=== PATIENT | male | born 1990 | race Caucasian/White ===

== ENCOUNTER 2023-01-13 12:59 | Emergency (ER) | payer OTHER ==
[~2023-01-13] VITALS: Ht 170.1 cm; Wt 61.2 kg
[~2023-01-13 12:59] MED LIST: KEFLEX500 MG PO; MOTRIN800 MG PO
[2023-01-13 13:12] VITALS: BP 145/72
== END 2023-01-13 15:20 | disposition home or self-care (01) ==
LOC: ED 12:59
DX: S46.912A Strain of unspecified muscle, fascia and tendon at shoulder and upper arm level, left arm, initial encounter (principal); S16.1XXA Strain of muscle, fascia and tendon at neck level, initial encounter; X58.XXXA Exposure to other specified factors, initial encounter; Y93.89 Activity, other specified; Y92.89 Other specified places as the place of occurrence of the external cause; Y99.8 Other external cause status